=== PATIENT | female | born 1995 | race Caucasian/White ===

== ENCOUNTER 2016-10-19 07:27 | Emergency (ER) | payer SELFPAY ==
[~2016-10-19] VITALS: Ht 127 cm; Wt 48.5 kg
[2016-10-19 07:31] VITALS: Ht 127 cm; Wt 48.5 kg
[2016-10-19] MEDS ORDERED: ONDANSETRON (ODT) 4 MG TAB ODT STA (08:11)
--- NOTE | 2016-10-19 08:11 | ERD ---
ER Documentation Chief Complaint Date/Time DATE: 10/19/16 TIME: 08:00 Chief Complaint 6 WEEKS WITH ABDOMINAL PAIN HPI 21-year-old female presents emergency department for lower abdominal pain/ cramping that is on and off for 3 weeks but got worse in the past 24 hours. Pain become more constant and regular. She also stated that the pain radiates to her lower back. Had a nonbilious and nonbloody vomiting 3 times in the last 24 hours. Went to a clinic last Thursday and found out that she is . Denies headache, loss of consciousness, dizziness, blurry vision, changes in vision, photophobia, facial pain, ear pain, throat pain, difficulty swallowing, neck pain, shoulder pain, chest pain, cough, hemoptysis, back pain, loss of appetite, hematochezia, diarrhea, constipation, urinary symptoms, bladder and bowel incontinences, extremity weakness, extremity tenderness, numbness or tingling sensation, difficulty walking, recent travel, recent exposure to illness, recent antibiotic use in the last 3 months, fever, chills. Allergy: No known drug allergies. PMH: Denies. Family medical history: Denies. AO LMP: September 08, 2016. Medications: Denies. Surgery: Denies. 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 Denies smoking, use of alcohol, use of illegal drugs. ROS All systems reviewed and are negative except as per history of present illness. Medications Home Meds Active Scripts Multivit/Min/Fol Ac/Iron/Pren* ( S*) 1 Tab Tab, 1 TAB PO DAILY for 30 Days, TAB Prov:PASILABAN,ILIAAR F 10/19/16 Acetaminophen* (Tylophen*) 500 Mg Capsule, 1 CAP PO Q6H Y for PAIN AND OR ELEVATED TEMP, #20 CAP Prov:PASILABAN,KLAR F 10/19/16 Cephalexin* (Keflex*) 500 Mg Capsule, 500 MG PO QID for 5 Days, CAP Prov:PASILABAN,KLAR F 10/19/16 PMhx/Soc Medical and Surgical Hx: pt denies Medical Hx, pt denies Surgical Hx Hx Alcohol Use: No Hx Substance Use: No Hx Tobacco Use: No Physical Exam Vitals Vital Signs Date Time Temp Pulse Resp B/P Pulse Ox O2 Delivery O2 Flow Rate FiO2 10/19/16 07:31 98.0 70 18 108/61 100 Physical Exam CONSTITUTIONAL: Well-appearing; well-nourished; in no apparent distress. HEAD: Normocephalic; atraumatic. EYES: Conjunctiva clear, sclera non-icteric, EOM intact. PERRL Ears: Hearing intact. EACs clear, TMs non-bulging, non-inflamed, translucent & mobile, ossicles normal appearance, No obstructions, no erythema, no discharges Nose: No obstructions. No polyps. No external lesions. Mucosa non-inflamed. No external lesions, septum and turbinates normal. No rhinorrhea. No discharges. Frontal sinus is non-tender to palpation. Maxillary sinus is non-tender to palpation. MOUTH: Moist mucous membranes, no lesion, no obstructions, no vesicles, no thrush, patent airway Throat: Uvula in midline. Right tonsil is +1 with no erythema, no exudate. Left tonsil is +1 with no erythema, no exudate. Tolerating secretions well. Good gag reflex. Patent airway. Neck: Supple, without lesions, bruits, or adenopathy. No mass. Thyroid non- enlarged and non-tender to palpation. CHEST: Symmetrical chest. Respirations even and not labored. No retractions noted. CARDIOVASCULAR: Normal S1, S2. RRR. No murmurs, gallops. RESPIRATORY: Normal chest excursion with respiration; breath sounds clear and equal bilaterally; no wheezes, rhonchi, or rales. Breathing even and unlabored. Speaking in clear, full, and complete sentences w/ ease. ABDOMEN: Normal bowel sounds normal. Soft, round, non-distended, non-guarding, no tenderness, no rebound, no organomegaly, no masses, no pulsating abdominal mass. No hernia. No peritoneal signs. : No CVA tenderness. BACK: Symmetrical shoulder. Spine is midline without deformity, tenderness. No evidence of trauma or deformity. PELVIS: Stable pelvis. No evidence of trauma or deformity. MUSCULOSKELETAL: Normal gait and station. No misalignment, asymmetry, crepitation, defects, tenderness, masses, effusions, decreased range of motion, instability, atrophy or abnormal strength or tone in the head, neck, spine, ribs , pelvis or extremities. No calf tenderness. NEUROVASCULAR: Distal pulses are present. Pedal pulse are present, equal, and normal. Capillary refills are < 2 seconds. NEUROLOGIC: Alert and oriented x4. Speaks full and clear sentences. Cranial Nerves II-XII normal. Sensation to pain, touch, and proprioception normal. Grossly unremarkable. No neurologic deficits. Romberg test is negative. PSYCHOLOGICAL: The patients mood and manner are appropriate. No hallucinations , delusions. Not SI. Not HI. Has the capacity to decide for self SKIN: Normal for age and ethnicity; warm; dry; good turgor; no apparent lesions or exudates. No rashes, hives, discoloration. Intact. Result Diagram: 10/19/16 0834 10/19/16 0834 Results 24 hrs Laboratory Tests Test 10/19/16 08:33 10/19/16 08:34 Urine Color YELLOW Urine Clarity CLEAR Urine pH 8.0 Urine Specific Roe 1.014 Urine Ketones NEGATIVEmg/dL Urine Nitrite NEGATIVEmg/dL Urine Bilirubin NEGATIVEmg/dL Urine Urobilinogen NEGATIVEmg/dL Urine Leukocyte Esterase TRACELeu/ul Urine Microscopic RBC 1/HPF Urine Microscopic WBC 0/HPF Urine Squamous Epithelial Cells FEW/HPF Urine Bacteria FEW/HPF Urine Hemoglobin NEGATIVEmg/dL Urine Glucose NEGATIVEmg/dL Urine Total Protein NEGATIVEmg/dl White Blood Count 4.410^3/ul Red Blood Count 4.4210^6/ul Hemoglobin 9.4g/dl Hematocrit 30.8% Mean Corpuscular Volume 69.7fl Mean Corpuscular Hemoglobin 21.3pg Mean Corpuscular Hemoglobin Concent 30.5g/dl Red Cell Distribution Width 17.8% Platelet Count 72942^3/UL Mean Platelet Volume 10.2fl Neutrophils % 61.5% Lymphocytes % 27.8% Monocytes % 7.6% Eosinophils % 2.1% Basophils % 0.5% Nucleated Red Blood Cells % 0.0/100WBC Neutrophils # 2.710^3/ul Lymphocytes # 1.210^3/ul Monocytes # 0.310^3/ul Eosinophils # 0.110^3/ul Basophils # 0.010^3/ul Nucleated Red Blood Cells # 0.010^3/ul Sodium Level 142mmol/L Potassium Level 4.6mmol/L Chloride Level 104mmol/L Carbon Dioxide Level 23mmol/L Anion Gap 20 Blood Urea Nitrogen 8mg/dl Creatinine 0.49mg/dl Glucose Level 92mg/dl Calcium Level 9.3mg/dl Total Bilirubin 0.1mg/dl Direct Bilirubin 0.00mg/dl Indirect Bilirubin 0.1mg/dl Aspartate Amino Transf (AST/SGOT) 24IU/L Alanine Aminotransferase (ALT/SGPT) 32IU/L Alkaline Phosphatase 70IU/L Total Protein 7.9g/dl Albumin 5.0g/dl Globulin 2.90g/dl Albumin/Globulin Ratio 1.72 Amylase Level 69U/L Lipase 67U/L Beta HCG, Quantitative 22486.0mIU/ml Current Medications Medications (Trade) Dose Ordered Sig/Елена Route PRN Reason Start Time Stop Time Status Last Admin Dose Admin Ondansetron HCl (Zofran Odt) 4 mg ONCE STAT ODT 10/19/16 08:11 10/19/16 08:15 DC 10/19/16 08:42 Acetaminophen (Tylenol Tab) 500 mg ONCE STAT PO 10/19/16 11:46 10/19/16 11:47 DC Procedures/MDM Examination: See physical examination. Disease process, medical treatment was explained to the patient and family member. They verbalized understanding and agreed with the diagnostic tests, medical treatment, and follow-up care. Radiology: OB ultrasound Findings: The uterus is anteverted and measures 7.9 x 6.1 x 4.9 cm. There is a very early, 5 with 5 day, single intrauterine . The crown rump length is 2 mm. A yolk sac is present. At this time, cardiac activity could not be definitely seen. A follow-up ultrasound in 1-2 weeks as needed. There is no evidence for free fluid. The ovary has a normal echotexture and measures 3.2 x 2.6 x 2.5 cm. The left ovary has a normal echotexture and measures 4.5 x 3.9 x 3.2 cm. A left hemorrhagic cyst is present. No adnexal masses are noted. There are no findings of ovarian torsion. Normal follicular activity is present. Impression: Very early 5 week 5 day intrauterine . At this time cardiac activity cannot be definitely seen. Follow-up ultrasound in 1-2 weeks is needed to confirm viability. 4.1 cm hemorrhagic left ovarian cyst. Blood works: Reviewed. Type and Rh was O+. POC urine : Positive. Urinalysis: Reviewed. Treatment: Tylenol. Re-evaluation: Denies headache, dizziness, blurry vision, neck pain, shoulder pain, chest pain, back pain, abdominal pain, nausea, vomiting. No episode of emesis in the emergency department. Alert and oriented 4. Speaks full and clear sentences. Respirations even and unlabored. Lung sounds clear to auscultation. Active bowel sounds. There is no right upper/right lower/ epigastric/left upper/left lower abdominal tenderness and light and deep palpation. Negative on Rovsings sign. Negative Nain sign. No peritoneal signs. Ambulatory with steady gait. No neurovascular deficits. No neurological deficits. Consultation: None. Differential diagnosis: Ectopic versus miscarriage versus demise versus cholecystitis versus pancreatitis Medical decision makin-year-old female presents emergency department for lower abdominal pain/cramping that is on and off for 3 weeks but got worse in the past 24 hours. Pain become more constant and regular. She also stated that the pain radiates to her lower back. Had a nonbilious and nonbloody vomiting 3 times in the last 24 hours. Went to a clinic last Thursday and found out that she is . Patient's complaint, patient history about her complaint, my physical findings, diagnostic test results, my reevaluation are consistent with my final diagnosis of threatened intrauterine , cystitis. Medications prescribed are the following: Tylenol. vitamins. Keflex. Patient and family member are made aware of the side effects and adverse reactions of the medications prescribed. Instructed on when to seek emergent and medical attention in case allergic/anaphylactic reactions or severe side effects and or adverse reactions to medications. Patient and family member verbalized understanding. Patient instructed Instructed to follow-up with his PCP in 24-48 hours. Come back in 2 days for a recheck or follow-up with OB specialist in the next 24-48 hours. Instructed to Call 911 for chest pain, shortness of breath. Advised to come back here in ED as soon as possible for severity of symptoms which includes but not limited to: any new symptoms; shortness of breath/difficulty of breathing; cardiovascular changes; severe gastrointestinal symptoms; signs and symptoms of bleeding and or infection; signs of compartment syndrome/neurovascular changes; neurological changes/deficits. Patient and family member verbalized understanding. Upon discharge, patient is alert and oriented x 4, speaks full and clear sentences, denies pain, has no neurological deficits, has no neurovascular deficits, difficulty of breathing. Breathing even and unlabored. Lung sounds are clear to auscultation. Not in distress. Appears comfortable. Ambulatory with steady gait. Appears satisfied with care provided here in ED. Departure Diagnosis: Primary Impression: Abdominal pain during Additional Impression: Cystitis Condition: Stable Additional Instructions: Instructed to follow-up with his PCP in 24-48 hours. Come back in 2 days for a recheck or follow-up with OB specialist in the next 24-48 hours. Instructed to Call 911 for chest pain, shortness of breath. Advised to come back here in ED as soon as possible for severity of symptoms which includes but not limited to: any new symptoms; shortness of breath/difficulty of breathing; cardiovascular changes; severe gastrointestinal symptoms; signs and symptoms of bleeding and or infection; signs of compartment syndrome/neurovascular changes; neurological changes/deficits. Patient and family member verbalized understanding. CHRISTOPHER DUNLAP Oct 19, 2016 08:10
[2016-10-19 08:42] LABS: ADD SCAN DIFF NO
[2016-10-19 08:47] LABS: BASOPHILS % 0.5 % (0.0-2.0); EOSINOPHILS # 0.1 10^3/ul (0.0-0.5); EOSINOPHILS % 2.1 % (0.0-7.0); HEMATOCRIT 30.8 % (37.0-47.0); HEMOGLOBIN 9.4 g/dl (12.0-16.0); LYMPHOCYTES # 1.2 10^3/ul (0.8-2.9); LYMPHOCYTES % 27.8 % (15.0-51.0); MEAN CORPUSCULAR HEMOGLOBIN 21.3 pg (29.0-33.0); MEAN CORPUSCULAR HGB CONC 30.5 g/dl (32.0-37.0); MEAN CORPUSCULAR VOLUME 69.7 fl (82.0-101.0); MEAN PLATELET VOLUME 10.2 fl (7.4-10.4); MONOCYTE # 0.3 10^3/ul (0.3-0.9); MONOCYTES % 7.6 % (0.0-11.0); NEUTROPHIL # 2.7 10^3/ul (1.6-7.5); NEUTROPHILS % 61.5 % (39.0-77.0); PLATELET COUNT 311 10^3/UL (140-415); RED BLOOD COUNT 4.42 10^6/ul (4.20-5.40); RED CELL DISTRIBUTION WIDTH 17.8 % (11.5-14.5); WHITE BLOOD COUNT 4.4 10^3/ul (4.8-10.8)
[2016-10-19 08:50] LABS: ADD UMIC YES; UR ASCORBIC ACID NEGATIVE (NEGATIVE); UR BACTERIA FEW /HPF (NONE SEEN); UR BILIRUBIN (Dip) NEGATIVE (NEGATIVE); UR BLOOD (Dip) NEGATIVE (NEGATIVE); UR CLARITY CLEAR (CLEAR); UR COLOR YELLOW (YELLOW); UR GLUCOSE (Dip) NEGATIVE (NEGATIVE); UR KETONES (Dip) NEGATIVE (NEGATIVE); UR LEUKOCYTE ESTERASE (Dip) TRACE Leu/ul (NEGATIVE); UR NITRITE (Dip) NEGATIVE (NEGATIVE); UR RBC 1 /HPF (0-5); UR SPECIFIC GRAVITY (Dip) 1.014 (1.003-1.030); UR SQUAMOUS EPITHELIAL CELL FEW /HPF (FEW); UR TOTAL PROTEIN (Dip) NEGATIVE (NEGATIVE); UR UROBILINOGEN (Dip) NEGATIVE (NEGATIVE)
[2016-10-19 09:19] LABS: ALBUMIN/GLOBULIN RATIO 1.72; BILIRUBIN,INDIRECT 0.1 mg/dl (0-1.1); BILIRUBIN,TOTAL 0.1 mg/dl (0.2-1.3); CALCIUM 9.3 mg/dl (8.4-10.2); CREATININE 0.49 mg/dl (0.44-1.00); POTASSIUM 4.6 mmol/L (3.5-5.1); TOTAL PROTEIN 7.9 g/dl (6.1-8.1)
[2016-10-19] MEDS ORDERED: ACET500C5 PO (11:40)
[2016-10-19] MEDS ORDERED: CEPH-443 PO (11:40)
[2016-10-19] MEDS ORDERED: PRENAT PO (11:41)
[2016-10-19] MEDS ORDERED: ACETAMINOPHEN 500 MG TAB PO STA (11:46)
--- NOTE | 2016-10-19 12:39 | RADRPT ---
PROCEDURE: US Pelvis. CLINICAL INDICATION: Pelvic pain TECHNIQUE: Multiple sonographic images of the pelvis were obtained utilizing a transabdominal and endovaginal technique. The images were reviewed on a PACS workstation. COMPARISON: None. FINDINGS: The uterus is anteverted and measures 7.9 x 6.1 x 4.9 cm. There is a very early, 1-dppi-1-day, singl e, intrauterine . The crown-rump length is 2 mm. A yolk sac is present. At this time, fe radha cardiac activity could not be definitely seen. A follow-up ultrasound in 1-2 weeks is needed. There is no evidence for free fluid. The right ovary has a normal echotexture and measures 3.2 x 2.6 x 2.5 cm . The left ovary has a normal echotexture and measures 4.1 x 3.9 x 3.2 cm. A left hemorrh agic cyst is present. No adnexal masses are noted. There are no findings of ovarian torsion. Normal follicular activity is present. IMPRESSION: 1. Very early 7-wkuw-2-day intrauterine . At this time cardiac activity cannot be d efinitely seen. A follow-up ultrasound in 1-2 weeks is needed to confirm viability. 2. 4.1 cm hemorrhagic left ovarian cyst. RPTAT: EE .Madalyn Jennings MD, MD Date Time Electronically viewed and signed by .Madalyn Jennings MD, on 10/19/2016 10:15 .F/
== END 2016-10-19 11:59 | disposition home or self-care (01) ==
LOC: FTE 07:27
DX: O26.891 Other specified pregnancy related conditions, first trimester (principal); R10.30 Lower abdominal pain, unspecified; O23.11 Infections of bladder in pregnancy, first trimester; R10.2 Pelvic and perineal pain; Z3A.01 Less than 8 weeks gestation of pregnancy
CPT/HCPCS: 36415; 76801; 76817; 80053; 81001; 82150; 83690; 84702; 85025; 86900; 86901; 87086

== ENCOUNTER 2017-06-16 20:09 | Outpatient (CLI) | END 2017-06-16 22:55 | disposition home or self-care (01) ==

== ENCOUNTER 2017-06-19 09:19 | Inpatient (IN) | END 2017-06-22 15:55 | disposition home or self-care (01) | DRG 775 ==